=== PATIENT | female | born 1995 | race Caucasian/White ===

== ENCOUNTER 2016-07-26 08:56 | Emergency (ER) | payer BC, OTHER ==
[~2016-07-26] VITALS: Ht 172.7 cm; Wt 75.0 kg
[~2016-07-26 08:56] MED LIST: CLIN1CAP51 PO
[2016-07-26 09:02] VITALS: TEMP 36.4; Ht 172.7 cm; Wt 75.0 kg
--- NOTE | 2016-07-26 09:32 | DIAGNOSTIC IMAGING REPORT ---
RIGHT ANKLE MIN 3 VIEWS ROUTINE CLINICAL HISTORY: R ankle injury Right trauma. Pain. COMPARISON: None. DISCUSSION: Oblique fracture distal fibula. Oblique fracture medial malleolus. Bony alignment is anatomic. Generalized soft tissue edema. IMPRESSION: Nondisplaced bimalleolar fracture right ankle. Soft tissue edema. Electronically signed by: German Borja M.D. 07/26/2016 9:30 AM Dictated Date/Time: 07/26/2016 9:29 AM
[2016-07-26] MEDS ORDERED: IBUPROFEN 600 MG TAB PO STA (09:46)
[2016-07-26] MEDS ORDERED: OXYCODONE HCL IR 5 MG TAB (IMMEDIATE RELEASE) PO STA (09:46)
[2016-07-26] MEDS ORDERED: OXYC1TAB3 PO (09:57)
--- NOTE | 2016-07-26 10:30 | EMERGENCY ROOM VISIT NOTE ---
History First contact with patient: 09:06 Chief Complaint: ANKLE PAIN Stated Complaint: BROKEN ANKLE History of Present Illness The patient is a 21 year old female who presents to the Emergency Room with complaints of right ankle pain after slipping on ice last night and twisting her ankle. The patient reports persistent pain and swelling, rating her discomfort an 8 out of 10 with weightbearing. The patient denies any pain extending into the leg, and denies any knee injury. Denies paresthesias or numbness of the right foot or toes. Review of Systems 10 system review was performed and was negative except for pertinent positives and negatives as indicated in history of present illness Past Medical/Surgical History Medical Problems: (1) No significant past medical history Surgical Problems: (1) History of peritonsillar abscess Family History FH: diabetes mellitus FH: hypertension Social History Smoking Status: Never Smoker Alcohol Use: occasionally Marital Status: single Housing Status: lives with family Occupation Status: unemployed Current/Historical Medications Scheduled PRN Oxycodone Ir (Roxicodone Ir), 1-2 TAB PO Q4H PRN for Pain Allergies Coded Allergies: No Known Allergies (Unverified , 07/26/16) Physical Exam Vital Signs Date Time Temp Pulse Resp B/P Pulse Ox O2 Delivery O2 Flow Rate FiO2 07/26/16 10:44 66 122/68 97 07/26/16 09:02 36.4 87 18 123/69 100 Room Air Physical Exam CONSTITUTIONAL: Healthy and well nourished. Alert and oriented X 3 with positive affect. HEENT: Normocephalic, atraumatic. Pupils equal, round and reactive. NECK: Full active range of motion without discomfort. RESPIRATORY: Clear to auscultation bilaterally with no wheezing, crackles, rhonchi or stridor. CARDIOVASCULAR: Examination of the right ankle shows diffuse edema without any open wounds or significant ecchymosis. She has tenderness over the lateral and medial aspect of the ankle. Capillary refill is less than 2 seconds. No focal tenderness over the dorsal midfoot, metatarsals, phalanges, calcaneus or Achilles tendon. No tenderness to palpation about the knee or proximal fibula. Pedal pulses are intact. MUSCULOSKELETAL: Full range of motion of all joints without discomfort. INTEGUMENTARY: No rash or other significant dermatologic conditions noted. NEUROLOGIC: Right foot and toes are sensory intact. Medical Decision & Procedures ER Provider Diagnostic Interpretation: My interpretation of right ankle x-ray shows a bimalleolar fracture that is well aligned. No obvious ankle mortise asymmetry. Radiologist report is as follows: RIGHT ANKLE MIN 3 VIEWS ROUTINE CLINICAL HISTORY: R ankle injury Right trauma. Pain. COMPARISON: None. DISCUSSION: Oblique fracture distal fibula. Oblique fracture medial malleolus. Bony alignment is anatomic. Generalized soft tissue edema. IMPRESSION: Nondisplaced bimalleolar fracture right ankle. Soft tissue edema. Medications Administered Medications (Trade) Dose Ordered Sig/Mychal Route Start Time Stop Time Status Last Admin Dose Admin Oxycodone HCl (Roxicodone Immediate Rel Tab) 5 mg NOW STAT PO 07/26/16 09:46 07/26/16 09:48 DC 07/26/16 09:46 5 MG Ibuprofen (Motrin Tab) 600 mg NOW STAT PO 07/26/16 09:46 07/26/16 09:48 DC 07/26/16 09:54 600 MG ED Course Patient history and physical exam were performed. Nurse's notes were reviewed. The patient had gone to x-ray prior to exam. X-ray shows a bimalleolar fracture that is well aligned. The patient was administered OxyIR 5 mg after my exam. A posterior Ortho-Glass splint was applied. Neurovascular check after splint placement was normal. The patient was provided contact information for [facility]. The patient was instructed to call the office on Thursday for an appointment. Ice and elevation for swelling. Ibuprofen and Tylenol for baseline pain relief. The patient was provided a prescription for OxyIR as needed for breakthrough pain. No drinking or driving while taking OxyIR. The patient was happy with plan of care, voiced understanding of all discharge instructions, and rated her pain a 3 out of 10 at the time of discharge. Medical Decision Impression Primary Impression: Bimalleolar fracture of right ankle Departure Information Dispostion Home / Self-Care Prescriptions Oxycodone Ir (Roxicodone Ir) 5 Mg Tab 1-2 TAB PO Q4H Y for Pain, #24 TAB For Initial Treatment Prov: Juan Rodrigez PA 07/26/16 Referrals Angel Anne D.O. Forms HOME CARE DOCUMENTATION FORM, IMPORTANT VISIT INFORMATION Patient Instructions My [facility] Additional Instructions Ice and elevate ankle for swelling and pain. Ibuprofen 800 mg and/or Tylenol 1000 mg every 8 hours. You may also alternate these medications for more effective pain relief: Ibuprofen --4 HRS--> Tylenol --4 HRS--> ibuprofen --4 HRS--> Tylenol .... OxyIR if needed for additional pain relief. Do not drink or drive while taking OxyIR. Keep splint dry. Follow-up with [facility] (Dr. Anne) for further evaluation and treatment - call Thu morning for appointment. Problem Qualifiers Primary Impression: Bimalleolar fracture of right ankle Encounter type: initial encounter Fracture type: closed Qualified Codes: S82.841A - Displaced bimalleolar fracture of right lower leg, initial encounter for closed fracture
[2016-07-26 10:44] VITALS: BP 122/68; PULSE 66; O2SAT 97
== END 2016-07-26 10:46 | disposition home or self-care (01) ==
LOC: C.EDB 08:59 → C.EDA 10:46
DX: S82.844A Nondisplaced bimalleolar fracture of right lower leg, initial encounter for closed fracture (principal); W00.0XXA Fall on same level due to ice and snow, initial encounter

== ENCOUNTER → 2017-09-04 | Outpatient (CLI) | payer OTHER | END | disposition home or self-care (01) | LOC: C.PAPS 18:04 | PROVIDERS: ATTEND Obstetrics & Gynecology | DX: Z12.4 Encounter for screening for malignant neoplasm of cervix (principal); Z11.51 Encounter for screening for human papillomavirus (HPV) ==

== ENCOUNTER → 2017-09-04 | Outpatient (CLI) | payer OTHER | END | disposition home or self-care (01) | LOC: C.LABSPEC 17:27 | PROVIDERS: ATTEND Obstetrics & Gynecology | DX: R39.9 Unspecified symptoms and signs involving the genitourinary system (principal); Z11.3 Encounter for screening for infections with a predominantly sexual mode of transmission ==

== ENCOUNTER 2017-09-12 18:12 | Emergency (ER) | payer OTHER ==
[~2017-09-12] VITALS: Ht 172.7 cm; Wt 74.0 kg
[2017-09-12 18:14] VITALS: TEMP 36.7; Ht 172.7 cm; Wt 74.0 kg
[2017-09-12] MEDS ORDERED: MoRPHine SULFATE 10 MG/ML CARP/VIAL IV STA (18:28)
[2017-09-12] MEDS ORDERED: ONDANSETRON INJ 2 MG/ML 2 ML VIAL IV STA (18:28)
[2017-09-12] MEDS ORDERED: SODIUM CHLORIDE 0.9% 1000ML 1,000 ML IV ONE (18:30)
[2017-09-12 18:45] VITALS: O2SAT 100
[2017-09-12] MEDS ORDERED: OPTIRAY 320 IV PRN (18:45)
[2017-09-12] MEDS ORDERED: IBUP-103 PO (19:04)
[2017-09-12 19:07] LABS: BASO % 0.1 %; BASO ABS # 0.01 K/uL (0-0.2); EOS % 0.1 %; EOS ABS # 0.01 K/uL (0-0.5); HEMATOCRIT 39.8 % (37-47); HEMOGLOBIN 13.8 g/dL (12.0-16.0); IG# 0.02 K/uL (0.00-0.02); LYMPH % 2.5 %; LYMPH ABS # 0.22 K/uL (1.2-3.4); MEAN CELL VOLUME 84.9 fL (80-100); MEAN CORPUSCULAR HEMOGLOBIN 29.4 pg (25-34); MEAN CORPUSCULAR HGB CONC 34.7 g/dl (32-36); MEAN PLATELET VOLUME 9.2 fL (7.4-10.4); MONO % 3.9 %; MONO ABS # 0.34 K/uL (0.11-0.59); NEUT % 93.2 %; NEUT ABS # 8.23 K/uL (1.4-6.5); PLATELET COUNT 173 K/uL (130-400); RED CELL DISTRIBUTION WIDTH CV 12.1 % (11.5-14.5); RED CELL DISTRIBUTION WIDTH SD 37.5 fL (36.4-46.3); WHITE BLOOD COUNT 8.83 K/uL (4.8-10.8)
[2017-09-12 19:27] LABS: ALBUMIN 4.2 gm/dl (3.4-5.0); CALCIUM 9.1 mg/dl (8.5-10.1); CREATININE 0.77 mg/dl (0.60-1.20); POTASSIUM 3.3 mmol/L (3.5-5.1)
--- NOTE | 2017-09-12 20:16 | DIAGNOSTIC IMAGING REPORT ---
CHEST 2 VIEWS ROUTINE CLINICAL HISTORY: Chest pain after vomiting nausea COMPARISON STUDY: No previous studies for comparison. FINDINGS: The bones soft tissues and hemidiaphragms are normal. The cardiomediastinal silhouette is normal. The lungs are clear. The pulmonary vasculature is normal. IMPRESSION: Negative chest. The above report was generated using voice recognition software. It may contain grammatical, syntax or spelling errors. Electronically signed by: German Borja M.D. 09/12/2017 8:15 PM Dictated Date/Time: 09/12/2017 8:15 PM
--- NOTE | 2017-09-12 21:27 | DIAGNOSTIC IMAGING REPORT ---
ABD/PELVIS IV AND ORAL CONT CT DOSE: 328.09 mGy.cm HISTORY: Nausea. Vomiting. Abd pain. N/V/D TECHNIQUE: Multiaxial CT images of the abdomen and pelvis were performed following the use of intravenous and oral contrast. A dose lowering technique was utilized adhering to the principles of ALARA. COMPARISON STUDY: None. FINDINGS: Lung bases are clear. Liver spleen and pancreas are uniform. Kidneys enhance uniformly. No evidence for hydronephrosis. There are findings of a mild degree of small bowel hyperemia. The colonic pattern is considered unremarkable. The appendix is normal. Increased fecal load within the sigmoid. The uterus is anteflexed. Bladder is midline. IMPRESSION: 1. Mild small bowel enteritis. 2. Increased fecal load within the sigmoid colon. 3. Otherwise normal study. The above report was generated using voice recognition software. It may contain grammatical, syntax or spelling errors. Electronically signed by: German Borja M.D. 09/12/2017 9:25 PM Dictated Date/Time: 09/12/2017 9:23 PM
[2017-09-12] MEDS ORDERED: ONDANSETRON HOME PACK 4MG OD TAB PO ONE (21:45)
[2017-09-12] MEDS ORDERED: NORCO 5/325MG HOME PACK PO ONE (21:45)
[2017-09-12 22:29] VITALS: BP 113/59; PULSE 87; O2SAT 99
--- NOTE | 2017-09-12 23:00 | EMERGENCY ROOM VISIT NOTE ---
History First contact with patient: 18:17 Chief Complaint: ABDOMINAL PAIN Stated Complaint: VOMITING, SWEATING, SEVERE ABDOMINAL PAIN Nursing Triage Summary: Patient has c/o all over abd pain with n/v/d that started this afternoon. Patient was on Macrobid for the last week for UTI. Patient unable to eat today. History of Present Illness The patient is a 22 year old female who presents to the Emergency Room with complaints of generalized abdominal pain that has been worsening over the past 4 -5 hours. The patient is nauseated and did have a few episodes of emesis. She also reports having a few episodes of diarrhea. The patient was on Macrobid last week for a UTI, but those symptoms have resolved. She does not believe that she is as she started her menses today. She does not have a history of abdominal surgery. The patient rates her discomfort a 9/10 that sometimes will radiate from her upper abdomen into her chest. Review of Systems More than 10 systems were reviewed and otherwise negative with the exception of history of present illness. Past Medical/Surgical History Medical Problems: (1) No significant past medical history Surgical Problems: (1) History of peritonsillar abscess Family History FH: diabetes mellitus FH: hypertension Social History Smoking Status: Never Smoker Alcohol Use: occasionally Marital Status: single Housing Status: lives with family Occupation Status: unemployed Current/Historical Medications Scheduled PRN Ibuprofen Tab (Advil), 200 MG PO Q4H PRN for Pain Physical Exam Vital Signs Date Time Temp Pulse Resp B/P (MAP) Pulse Ox O2 Delivery O2 Flow Rate FiO2 09/12/17 22:29 87 18 113/59 99 09/12/17 20:32 100 09/12/17 20:20 96 18 121/71 99 Room Air 09/12/17 18:45 100 Room Air 09/12/17 18:14 36.7 107 20 105/86 97 Physical Exam VITALS: Vitals are noted on the nurse's note and reviewed by myself. Vital signs stable. GENERAL: Well-developed, well-nourished, white female, who appears in moderate discomfort secondary to her stated complaint. NECK: Supple without nuchal rigidity. No lymphadenopathy. No thyromegaly. Cervical spine is nontender. HEART: Regular rate and rhythm without murmurs gallops or rubs. LUNGS: Clear to auscultation bilaterally without wheezes, rales or rhonchi. No retractions or accessory muscle use. ABDOMEN: Positive normal bowel sounds x 4. Soft with generalized tenderness. No focal tenderness. No rebound or guarding. MUSCULOSKELETAL: No muscle atrophy, erythema, or edema noted. Full range of motion in all extremities. Medical Decision & Procedures ER Provider Diagnostic Interpretation: CHEST 2 VIEWS ROUTINE CLINICAL HISTORY: Chest pain after vomiting nausea COMPARISON STUDY: No previous studies for comparison. FINDINGS: The bones soft tissues and hemidiaphragms are normal. The cardiomediastinal silhouette is normal. The lungs are clear. The pulmonary vasculature is normal. IMPRESSION: Negative chest. ABD/PELVIS IV AND ORAL CONT CT DOSE: 328.09 mGy.cm HISTORY: Nausea. Vomiting. Abd pain. N/V/D TECHNIQUE: Multiaxial CT images of the abdomen and pelvis were performed following the use of intravenous and oral contrast. A dose lowering technique was utilized adhering to the principles of ALARA. COMPARISON STUDY: None. FINDINGS: Lung bases are clear. Liver spleen and pancreas are uniform. Kidneys enhance uniformly. No evidence for hydronephrosis. There are findings of a mild degree of small bowel hyperemia. The colonic pattern is considered unremarkable. The appendix is normal. Increased fecal load within the sigmoid. The uterus is anteflexed. Bladder is midline. IMPRESSION: 1. Mild small bowel enteritis. 2. Increased fecal load within the sigmoid colon. 3. Otherwise normal study. Laboratory Results 09/12/17 18:56 Red Blood Count 4.69, Mean Corpuscular Volume 84.9, Mean Corpuscular Hemoglobin 29.4, Mean Corpuscular Hemoglobin Concent 34.7, Mean Platelet Volume 9.2, Neutrophils (%) (Auto) 93.2, Lymphocytes (%) (Auto) 2.5, Monocytes (%) (Auto) 3.9, Eosinophils (%) (Auto) 0.1, Basophils (%) (Auto) 0.1, Neutrophils # (Auto) 8.23, Lymphocytes # (Auto) 0.22, Monocytes # (Auto) 0.34, Eosinophils # (Auto) 0.01, Basophils # (Auto) 0.01 09/12/17 18:56 Test 09/12/17 18:56 09/12/17 19:00 09/12/17 20:19 White Blood Count 8.83 K/uL (4.8-10.8) Red Blood Count 4.69 M/uL (4.2-5.4) Hemoglobin 13.8 g/dL (12.0-16.0) Hematocrit 39.8 % (37-47) Mean Corpuscular Volume 84.9 fL (80-100) Mean Corpuscular Hemoglobin 29.4 pg (25-34) Mean Corpuscular Hemoglobin Concent 34.7 g/dl (32-36) Platelet Count 173 K/uL (130-400) Mean Platelet Volume 9.2 fL (7.4-10.4) Neutrophils (%) (Auto) 93.2 % Lymphocytes (%) (Auto) 2.5 % Monocytes (%) (Auto) 3.9 % Eosinophils (%) (Auto) 0.1 % Basophils (%) (Auto) 0.1 % Neutrophils # (Auto) 8.23 K/uL (1.4-6.5) Lymphocytes # (Auto) 0.22 K/uL (1.2-3.4) Monocytes # (Auto) 0.34 K/uL (0.11-0.59) Eosinophils # (Auto) 0.01 K/uL (0-0.5) Basophils # (Auto) 0.01 K/uL (0-0.2) RDW Standard Deviation 37.5 fL (36.4-46.3) RDW Coefficient of Variation 12.1 % (11.5-14.5) Immature Granulocyte % (Auto) 0.2 % Immature Granulocyte # (Auto) 0.02 K/uL (0.00-0.02) Anion Gap 7.0 mmol/L (3-11) Est Creatinine Clear Calc Drug Dose 116.6 ml/min Estimated GFR () 127.9 Estimated GFR (Non- 110.4 BUN/Creatinine Ratio 17.4 (10-20) Calcium Level 9.1 mg/dl (8.5-10.1) Total Bilirubin 1.8 mg/dl (0.2-1) Aspartate Amino Transf (AST/SGOT) 13 U/L (15-37) Alanine Aminotransferase (ALT/SGPT) 25 U/L (12-78) Alkaline Phosphatase 70 U/L (45-117) Total Protein 8.0 gm/dl (6.4-8.2) Albumin 4.2 gm/dl (3.4-5.0) Globulin 3.8 gm/dl (2.5-4.0) Albumin/Globulin Ratio 1.1 (0.9-2) Lipase 116 U/L (73-393) Bedside Troponin I < 0.030 ng/ml (0-0.045) Urine Color YELLOW Urine Appearance CLEAR (CLEAR) Urine pH 6.0 (4.5-7.5) Urine Specific Jordan 1.012 (1.000-1.030) Urine Protein NEG (NEG) Urine Glucose (UA) NEG (NEG) Urine Ketones 2+ (NEG) Urine Occult Blood NEG (NEG) Urine Nitrite NEG (NEG) Urine Bilirubin NEG (NEG) Urine Urobilinogen NEG (NEG) Urine Leukocyte Esterase NEG (NEG) Urine Test NEG (NEG) Medications Administered Medications (Trade) Dose Ordered Sig/Mychal Route Start Time Stop Time Status Last Admin Dose Admin Morphine Sulfate (MoRPHine SULFATE INJ) 6 mg NOW STAT IV 09/12/17 18:28 09/12/17 18:32 DC 09/12/17 19:05 6 MG Ondansetron HCl (Zofran Inj) 4 mg NOW STAT IV 09/12/17 18:28 09/12/17 18:32 DC 09/12/17 19:05 4 MG Sodium Chloride 1,000 ml @ 999 mls/hr Q1H1M ONCE IV 09/12/17 18:30 09/12/17 19:30 DC 09/12/17 19:05 999 MLS/HR Acetaminophen/ Hydrocodone Bitart ([place] 5/325mg Home Pack) 1 homepack UD ONCE PO 09/12/17 21:45 09/12/17 21:46 DC 09/12/17 22:26 1 HOMEPACK Ondansetron HCl (ZOFRAN ODT 4MG Home Pack) 1 homepack UD ONCE PO 09/12/17 21:45 09/12/17 21:46 DC 09/12/17 22:26 1 HOMEPACK ED Course Physical exam and history were performed. Nursing notes, EMR, and Medication List were personally reviewed. Patient appears to have abdominal pain, nausea, vomiting, and diarrhea over the past several hours. The patient appears uncomfortable on examination. IV access was established and labs were obtained. She was hydrated and medicated as above. I did elect perform a chest x-ray which does not appear to show acute findings per my and radiology's interpretation. Because of her discomfort and petite nature I elected to perform CT scan of her belly with IV and oral contrast. Patient's blood work is as above and was reviewed. She does not have a significantly elevated white blood cell count, gross anemia, bandemia, or significant electrolyte imbalance. Lipase and transaminases were not diagnostic. Urine was unremarkable. Her CT scan is as above and is most consistent with an enteritis. On repeat examination the patient had essentially complete resolution of her discomfort. Her abdomen continued to be soft. Her tenderness has resolved. Clinically I suspect this is likely viral in nature and will improve with conservative measures. I will give the patient a home pack of Zofran and Vicodin. She will need to follow with S regarding her symptoms, as she may require GI follow-up if things continue. Patient understands the importance of returning to the ER with any new, worsening, or concerning symptoms. The chart was completed utilizing [employer] Speech Voice Recognition Software. Grammatical errors, random word insertions, pronoun errors, and incomplete sentences are an occasional consequence of this system due to software limitations, ambient noise, and hardware issues. Any formal questions or concerns about the content, text, or information contained within the body of this dictation should be directly addressed to the provider for clarification. . Medical Decision Differential diagnosis: Etiologies such as appendicitis, diverticulitis, PUD, biliary pathology, UTI, pancreatitis, obstruction, mesenteric ischemia, aortic pathology, infections, inflammatory bowel disease, renal colic, as well as others were entertained. Impression Primary Impression: Enteritis Additional Impression: Nausea vomiting and diarrhea Departure Information Dispostion Home / Self-Care Condition GOOD Forms HOME CARE DOCUMENTATION FORM, School Instructions, Additional Instructions: Patient was seen and evaluated today in the emergency department fo medical care. Return to class on 09/16/2017 or sooner if feeling better. IMPORTANT VISIT INFORMATION Patient Instructions My [facility] Additional Instructions You were seen and evaluated today on an emergency basis only. This is not a substitute for, or an effort to provide, complete comprehensive medical care. It is not possible to recognize and treat all injuries or illnesses in a single emergency department visit. For this reason it is recommended that you followup with S later this week with any ongoing or persisting symptoms. Drink plenty of fluids and remain well-hydrated. Zofran 4 mg ODT: Dissolve 1 tablet every 6 hrs as needed for nausea. [place] (hydrocodone/acetaminophen) 5/325 mg (homepack) every 6 hours as needed for worsening breakthrough pain. Do not drink or drive on [place]. This medication will likely make you tired. Do not take [place] and Tylenol at the same time as both contain acetaminophen. [place] may cause constipation. You may wish to take an [id number] stool softener like Colace if this occurs. You are welcome to return to the emergency department anytime with new, worsening, or concerning symptoms. School Instructions Additional School Instructions: Patient was seen and evaluated today in the emergency department for medical care. Return to class on 09/16/2017 or sooner if feeling better. Problem Qualifiers
== END 2017-09-12 22:31 | disposition home or self-care (01) ==
LOC: C.EDB 18:13 → C.EDA 22:31
DX: K52.9 Noninfective gastroenteritis and colitis, unspecified (principal); R11.2 Nausea with vomiting, unspecified; R19.7 Diarrhea, unspecified; Z83.3 Family history of diabetes mellitus